=== PATIENT | female | born 1990 | race Caucasian/White ===

== ENCOUNTER → 2019-08-21 14:55 | Outpatient (CLI) | payer OTHER, SELFPAY ==
--- NOTE | 2019-08-21 15:00 | DI.MRI.S_ITS ---
PROCEDURE: MR ANKLE RT WO CON INDICATIONS: PAIN IN UNSPECIFIED ANKLE AND JOINTS TECHNIQUE: Noncontrast sagittal T1 spin echo and T2 fast spin echo with fat saturation, axial proton density fast spin echo and T2 fast spin echo with fat saturation, coronal T1 spin echo and T2 fast spin echo with fat saturation through the ankle/hindfoot. COMPARISON: None. FINDINGS: Image quality: Excellent. Bones and joints: No bone marrow contusions or fractures. No hindfoot coalitions. No osteochondral injuries of the talar dome. No pathologic joint effusions. Medial structures: The posterior tibialis, flexor digitorum longus, and flexor hallucis longus tendons are intact. However, there is low signal thickening of the distal of the posterior tibialis tendon in addition to incidentally noted unfused accessory navicular. Posterior tibialis flexor digitorum longus tenosynovitis. The posterior tibial neurovascular bundle appears normal within the tarsal tunnel, without extrinsic mass effect. The deep layer (anterior and posterior tibiotalar ligaments) and superficial layer (tibionavicular, tibiospring, and tibiocalcaneal ligaments) of the deltoid ligament appear normal. The spring ligament components (superomedial calcaneonavicular, medioplantar oblique calcaneonavicular, and inferoplantar longitudinal ligaments) are intact. Lateral structures: The anterior talofibular, calcaneofibular, and posterior talofibular ligaments appear intact. More superiorly, the anterior and posterior tibiofibular ligaments appear intact, as is the intermalleolar ligament. The tibiofibular syndesmosis is normal in width at 2 mm or less. The peroneus longus and brevis tendons demonstrate normal location and morphology. Adjacent bony peroneal tubercle and retrotrochlear prominence are normal in size. The sinus tarsi demonstrates normal fatty signal, without edema, fibrosis, or cyst formation. Visualized sinus tarsi components (cervical ligament, interosseous talocalcaneal ligament, roots of the inferior extensor retinaculum) appear normal. The calcaneonavicular and calcaneocuboid components of the bifurcate ligament appear intact. The dorsal calcaneocuboid ligament appears intact. Anterior structures: The tibialis anterior, extensor hallucis longus, and extensor digitorum longus tendons appear intact. The dorsal talonavicular ligament appears intact. Posterior and plantar structures: Achilles tendon is intact. Medial and lateral bands of the plantar fascia are of normal thickness. No abductor digiti quinti muscle atrophy to suggest [place] neuropathy. IMPRESSION: Mild distal posterior tibialis tendinopathy and thickening, with incidentally noted unfused accessory navicular. Consider weight bearing foot radiographs to assess integrity of the medial longitudinal arch. Posterior tibialis and flexor digitorum longus tenosynovitis. Dictated by: Henry Fung M.D. on 08/23/2019 at 8:33 Approved by: Henry Fung M.D. on 08/23/2019 at 8:40
== END ==
PROVIDERS: Visit Provider Family Medicine
DX: M25.571 Pain in right ankle and joints of right foot (principal); M65.871 Other synovitis and tenosynovitis, right ankle and foot
CPT/HCPCS: 73721

== ENCOUNTER 2022-01-17 11:13 | Emergency (ER) | payer OTHER, SELFPAY ==
[2022-01-17 11:21] VITALS: BP 114/76; PULSE 88; RESP 18; TEMP 36.7; O2SAT 98
--- NOTE | 2022-01-17 12:10 | ED.NECK ---
HPI - Neck Pain/Injury <CARLI Tracey - Last Filed: 01/17/22 14:38> General Chief Complaint: Neck Pain/Injury Stated Complaint: Swollen lymphnode/infection. Referred by Anabella Dr Time Seen by Provider: 01/17/22 12:09 Mode of arrival: Ambulatory History of Present Illness HPI Narrative: 31-year-old female presents to the emergency department following a primary care appointment with her PCP about her swollen right cervical lymph node which started swelling 5 days ago. She states it is tender, large she has had a fever, muscle aches, ear pressure on bilateral sides, nausea without emesis, and poor p.o. intake due to the pain of her neck muscles when she is chewing. 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 She denies any known recent illness, states that she has 2 children but neither of them have been sick. Patient denies any recent dental work, states she had a dental cleaning 1 month ago. Endorses that she had a lot of dental work completed 1 year ago. Patient states she had COVID in November and think she may have lingering symptoms still. Patient is unvaccinated for COVID. Patient complains of fatigue, muscle aches, and right cervical adenopathy approximately 8 cm and round, tender to palpation without any skin changes. Related Data Previous Rx's Medication Instructions Recorded methocarbamol 500 mg tablet 500 mg PO TID PRN #20 tab 01/17/22 naproxen 500 mg tablet (Naprosyn) 500 mg PO BID PRN #20 tab 01/17/22 ondansetron 4 mg disintegrating 4 mg PO BEDTIME PRN #7 tab 01/17/22 tablet Allergies Allergy/AdvReac Type Severity Reaction Status Date / Time No Known Drug Allergies Allergy Verified 01/17/22 11:28 Review of Systems <CARLI Tracey - Last Filed: 01/17/22 14:38> Review of Systems Narrative: General: Endorses fever and fatigue denies chills, malaise, sweats Head/Neck: Endorses mild headache, headache, neck pain, dizziness Eyes: denies visual changes, eye pain Cardio: denies chest pain, palpitations, edema Respiratory: denies dyspnea, cough, orthopnea GI: denies abdominal pain, nausea, vomiting, or diarrhea : denies dysuria, hematuria, urinary retention, frequency or incontinence MSK: denies joint pain, muscle weakness Skin: denies rash, itching, skin lesions or other Neuro: denies numbness, tingling Patient History <CARLI Tracey - Last Filed: 01/17/22 14:38> Social History Smoking Status: Never smoker Smoking Status: Never smoker Substance Use Type: marijuana Exam <CARLI Tracey - Last Filed: 01/17/22 14:38> Narrative Exam Narrative: Independently reviewed vitals signs and nursing notes. General: Cooperative, comfortable, in no acute distress, well developed and well groomed Head/Neck: Right anterior cervical lymphadenopathy, tender to palpation, approximately 7 by 8 cm, non mobile no discoloration or skin changes, nonfluctuant nontender over bilateral mastoids Normal facial exam, Ears: Canals are patent bilaterally, TMs bilaterally are pearly rowe with bilateral middle ear effusions Eyes: Pupils equal round and reactive, EOMI, conjunctiva normal, no scleral icterus or injections Nose: External nose normal, nares patent, no rhinorrhea, without purulent drainage Mouth/Throat: uvula midline, moist mucus membranes Cardio: Regular rate and rhythm, no peripheral edema, warm extremities Respiratory: Normal respiratory effort, able to speak in complete sentences without audible wheezing, stridor, or rales. No retractions. GI: Abdomen soft, nontender to palpation x4 quadrants, nondistended, no masses or exquisite tenderness with exam, no flank tenderness MSK: Moves all extremities, neurovascularly intact Skin: Normal capillary refill, no rash Neuro: Normal speech and cognition, normal gait, A&O x3, tone normal, moves all extremities Psych: Mental status is grossly normal, speech is clear, congruent mood, normal affect Initial Vital Signs Initial Vital Signs: Vital Signs Temperature 98.0 F 01/17/22 11:21 Pulse Rate 88 01/17/22 11:21 Respiratory Rate 18 01/17/22 11:21 Blood Pressure 114/76 01/17/22 11:21 Pulse Oximetry 98 01/17/22 11:21 <Ines Su DO - Last Filed: 01/22/22 07:29> Initial Vital Signs Initial Vital Signs: Vital Signs Temperature 98.0 F 01/17/22 11:21 Pulse Rate 88 01/17/22 11:21 Respiratory Rate 18 01/17/22 11:21 Blood Pressure 114/76 01/17/22 11:21 Pulse Oximetry 98 01/17/22 11:21 Course <CARLI Tracey - Last Filed: 01/17/22 14:38> Orders Ordered: Discontinued Medications Dexamethasone (Dexamethasone 10 Mg/Ml Vial) 8 mg IV NOW ONE Stop: 01/17/22 14:22 Last Admin: 01/17/22 14:37 Dose: 8 mg Documented by: ATAYLOR Sodium Chloride (Normal Saline 0.9%) 1,000 mls @ 1,000 mls/hr IV BOLUS ONE Stop: 01/17/22 13:23 Last Infusion: 01/17/22 14:47 Dose: 0 mls/hr Documented by: Admin: 01/17/22 13:01 Dose: 1,000 mls/hr Documented by: ATAYLOR Ketorolac Tromethamine (Ketorolac 30 Mg/Ml Vial) 15 mg IV NOW ONE Stop: 01/17/22 12:25 Last Admin: 01/17/22 13:01 Dose: 15 mg Documented by: ATAYLOR Methocarbamol (Methocarbamol 500 Mg Tablet) 500 mg PO NOW ONE Stop: 01/17/22 12:25 Last Admin: 01/17/22 13:01 Dose: 500 mg Documented by: ATAYLOR Ondansetron HCl (Ondansetron 4 Mg/2 Ml Inj) 4 mg IV NOW ONE Stop: 01/17/22 12:25 Last Admin: 01/17/22 13:02 Dose: 4 mg Documented by: HERBERTOR Vital Signs Vital signs: Vital Signs - 8 hr 01/17/22 11:21 Temperature 98.0 F Pulse Rate 88 Respiratory Rate 18 Blood Pressure 114/76 Pulse Oximetry 98 <Ines Su DO - Last Filed: 01/22/22 07:29> Orders Ordered: Discontinued Medications Dexamethasone (Dexamethasone 10 Mg/Ml Vial) 8 mg IV NOW ONE Stop: 01/17/22 14:22 Last Admin: 01/17/22 14:37 Dose: 8 mg Documented by: ATAYLOR Sodium Chloride (Normal Saline 0.9%) 1,000 mls @ 1,000 mls/hr IV BOLUS ONE Stop: 01/17/22 13:23 Last Infusion: 01/17/22 14:47 Dose: 0 mls/hr Documented by: Admin: 01/17/22 13:01 Dose: 1,000 mls/hr Documented by: AUNDREA Ketorolac Tromethamine (Ketorolac 30 Mg/Ml Vial) 15 mg IV NOW ONE Stop: 01/17/22 12:25 Last Admin: 01/17/22 13:01 Dose: 15 mg Documented by: AUNDREA Methocarbamol (Methocarbamol 500 Mg Tablet) 500 mg PO NOW ONE Stop: 01/17/22 12:25 Last Admin: 01/17/22 13:01 Dose: 500 mg Documented by: AUNDREA Ondansetron HCl (Ondansetron 4 Mg/2 Ml Inj) 4 mg IV NOW ONE Stop: 01/17/22 12:25 Last Admin: 01/17/22 13:02 Dose: 4 mg Documented by: AUNDREA Vital Signs Vital signs: Vital Signs - 8 hr 01/17/22 11:21 Temperature 98.0 F Pulse Rate 88 Respiratory Rate 18 Blood Pressure 114/76 Pulse Oximetry 98 MDM - Neck Pain/Injury <Lissette Post [facility] - Last Filed: 01/17/22 14:38> Lab Data Result diagrams: 01/17/22 12:24 01/17/22 12:24 Labs: Lab Results 01/17/22 01/17/22 01/17/22 Range/Units 12:24 12:24 12:24 WBC 8.4 (4.5-11.0) X10^3/uL RBC 4.31 (4.0-5.2) X10^6/uL Hgb 13.0 (12.0-16.0) g/dL Hct 37.8 (36-46) % MCV 87.6 (80-100) fL MCH 30.2 (26-34) PG MCHC 34.5 (30-36) % RDW 12.9 (11.6-14.8) % Plt Count 252 (150-400) X10^3/uL Neut % (Auto) 80.9 H (50-75) % Lymph % (Auto) 10.0 L (25-40) % [place] % (Auto) 7.6 (3-14) % Eos % (Auto) 1.0 L (2-4) % Baso % (Auto) 0.5 (0-2) % Neut # (Auto) 6800 (2697-8833) /uL Lymph # (Auto) 800 L (7959-9971) /uL [place] # (Auto) 600 (0-900) /uL Eos # (Auto) 100 (0-450) /uL Baso # (Auto) 0 (0-100) /uL Sodium 138 (137-145) mmol/L Potassium 4.1 (3.4-5.1) mmol/L Chloride 103 (98-107) mmol/L Carbon Dioxide 28 (22-32) mmol/L BUN 8 (7-17) mg/dL Creatinine 0.57 (0.52-1.04) mg/dL Estimated GFR > 60.0 (>60) mL/min BUN/Creatinine Ratio 14.0 (6-22) Glucose 94 (70-100) mg/dL Calcium 9.1 (8.4-10.2) mg/dL Total Bilirubin 0.5 (0.2-1.3) mg/dL AST 68 H (14-36) IU/L ALT 80 H (<35) IU/L Alkaline Phosphatase 74 (38-126) U/L Total Protein 7.9 (6.3-8.2) g/dL Albumin 4.3 (3.5-5.0) g/dL Globulin 3.6 (1.7-4.1) g/dL Albumin/Globulin Ratio 1.2 (1.0-2.8) Urine Color Urine Appearance Urine pH (4.5-8.0) Ur Specific [place] (1.000-1.035) Urine Protein (Negative) Urine Glucose (UA) (Negative) g/dL Urine Ketones (NEGATIVE) Urine Occult Blood (Negative) Urine Nitrate (Negative) Urine Bilirubin (NEGATIVE) Urine Urobilinogen (0.2) E.U./dL Ur Leukocyte Esterase (NEGATIVE) Urine RBC (0-5/HPF) Urine WBC (0-5/HPF) Urine Bacteria (None) Ur Culture Indicated? Micro UA Comment Chlamy pneumoniae PCR (Not Detect) Adenovirus (PCR) (Not Detect) B. pertussis DNA (PCR) (Not Detecte) B.parapertussis DNA PCR (Not Detecte) Coronavirus OC43 (PCR) (Not Detect) Coronavirus HKU1 (PCR) (Not Detect) Coronavirus 229E (PCR) (Not Detect) SARS-CoV-2 (PCR) (Not Detecte) Coronavirus NL63 (PCR) (Not Detect) Monoscreen Negative (Negative) Human Metapneumovir PCR (Not Detect) Influenza Type A (PCR) (Not Detect) Influenza Type B (PCR) (Not Detect) M. pneumoniae (PCR) (Not Detect) Parainfluenza 1 (PCR) (Not Detect) Parainfluenza 2 (PCR) (Not Detect) Parainfluenza 3 (PCR) (Not Detect) Parainfluenza 4 (PCR) (Not Detect) RSV (PCR) (Not Detect) Entero/Rhino (PCR) (Not Detect) 01/17/22 01/17/22 Range/Units 12:28 12:53 WBC (4.5-11.0) X10^3/uL RBC (4.0-5.2) X10^6/uL Hgb (12.0-16.0) g/dL Hct (36-46) % MCV (80-100) fL MCH (26-34) PG MCHC (30-36) % RDW (11.6-14.8) % Plt Count (150-400) X10^3/uL Neut % (Auto) (50-75) % Lymph % (Auto) (25-40) % [place] % (Auto) (3-14) % Eos % (Auto) (2-4) % Baso % (Auto) (0-2) % Neut # (Auto) (2006-5910) /uL Lymph # (Auto) (3560-2693) /uL [place] # (Auto) (0-900) /uL Eos # (Auto) (0-450) /uL Baso # (Auto) (0-100) /uL Sodium (137-145) mmol/L Potassium (3.4-5.1) mmol/L Chloride (98-107) mmol/L Carbon Dioxide (22-32) mmol/L BUN (7-17) mg/dL Creatinine (0.52-1.04) mg/dL Estimated GFR (>60) mL/min BUN/Creatinine Ratio (6-22) Glucose (70-100) mg/dL Calcium (8.4-10.2) mg/dL Total Bilirubin (0.2-1.3) mg/dL AST (14-36) IU/L ALT (<35) IU/L Alkaline Phosphatase (38-126) U/L Total Protein (6.3-8.2) g/dL Albumin (3.5-5.0) g/dL Globulin (1.7-4.1) g/dL Albumin/Globulin Ratio (1.0-2.8) Urine Color Yellow Urine Appearance Clear Urine pH 7.0 (4.5-8.0) Ur Specific [place] 1.010 (1.000-1.035) Urine Protein Trace H (Negative) Urine Glucose (UA) Trace H (Negative) g/dL Urine Ketones Negative (NEGATIVE) Urine Occult Blood Trace-lysed (Negative) Urine Nitrate Negative (Negative) Urine Bilirubin Negative (NEGATIVE) Urine Urobilinogen 1.0 (0.2) E.U./dL Ur Leukocyte Esterase Negative (NEGATIVE) Urine RBC None seen (0-5/HPF) Urine WBC None seen (0-5/HPF) Urine Bacteria None seen (None) Ur Culture Indicated? Cult not indicated Micro UA Comment Microscopic normal Chlamy pneumoniae PCR Not detected (Not Detect) Adenovirus (PCR) Not detected (Not Detect) B. pertussis DNA (PCR) Not detected (Not Detecte) B.parapertussis DNA PCR Not detected (Not Detecte) Coronavirus OC43 (PCR) Not detected (Not Detect) Coronavirus HKU1 (PCR) Not detected (Not Detect) Coronavirus 229E (PCR) Not detected (Not Detect) SARS-CoV-2 (PCR) Not detected (Not Detecte) Coronavirus NL63 (PCR) Not detected (Not Detect) Monoscreen (Negative) Human Metapneumovir PCR Not detected (Not Detect) Influenza Type A (PCR) Not detected (Not Detect) Influenza Type B (PCR) Not detected (Not Detect) M. pneumoniae (PCR) Not detected (Not Detect) Parainfluenza 1 (PCR) Not detected (Not Detect) Parainfluenza 2 (PCR) Not detected (Not Detect) Parainfluenza 3 (PCR) Not detected (Not Detect) Parainfluenza 4 (PCR) Not detected (Not Detect) RSV (PCR) Not detected (Not Detect) Entero/Rhino (PCR) Not detected (Not Detect) Point of Care Testing Test Results Negative Imaging Data US neck: Radiologist's Impression: PROCEDURE:? US SOFT TISSUE HEAD AND NECK ? INDICATIONS:? RIGHT CERVICAL ADENOPATHY VS ABSCESS ? TECHNIQUE:? Real-time scanning was performed of the neck region of interest, with image documentation.? ? COMPARISON:? None. ? FINDINGS:? ? Palpable abnormality corresponds with right submandibular adenopathy.? Largest node measures 2.1 x 1.4 x 2.0 cm.? Fatty hilum is preserved.? No evidence of soft tissue abscess ? IMPRESSION:? ? Right submandibular adenopathy.? No evidence of abscess. ? ? ? Approved by: Toribio Burton M.D. on 01/17/2022 at 13:25? MDM Narrative Medical decision making narrative: 31-year-old female presents to the emergency department with right anterior cervical adenopathy which has been present for 5 days. Patient states that she developed a low-grade fever about the time that she noticed her lymphadenopathy. She does not have any other swollen lymph nodes other than the ones on her right anterior neck, ultrasound soft tissue neck shows right submandibular adenopathy without evidence of abscess. Palpable abnormality corresponds with right-sided mandibular adenopathy with largest node measuring 2.1 x 1.4 x 2.0 cm. Lab work is fairly unremarkable, initially this appeared to be a viral URI with bilateral middle ear effusion, pharyngitis, muscle aches, fever but her respiratory panel was negative for all tested viruses including negative Monospot. Leukocytosis, WBC is 8.4, elevated neutrophils and low lymphocytes. Patient's AST and ALT are mildly elevated at 68 and 80 respectively, high UA shows a trace of protein and a trace of urine glucose no other findings. There are no acute surgical or emergent findings on her exam today, her vital signs are within normal limits, she is afebrile, without tachycardia, hypoxia, or systemic signs of infection. Patient was given methocarbamol, Toradol, 1 L of normal saline, Zofran in the emergency department with improvement in her symptoms and pain. She was discharged with a prescription of methocarbamol, Zofran and naproxen for pain and fever. This is most likely a viral syndrome although she tested negative for all tested viruses. Patient is appropriate and amenable to discharge home. Vital signs are stable on repeat examination is unremarkable. Patient has been informed of results. Patient has been given strict return to ER precautions for any new or worsening symptoms. Patient understands to follow up closely with outpatient providers as instructed. Patient understands plan and agrees to discharge home. All questions and concerns answered at this time. <Ines Su, DO - Last Filed: 01/22/22 07:29> Lab Data Labs: Lab Results 01/17/22 01/17/22 01/17/22 Range/Units 12:24 12:24 12:24 WBC 8.4 (4.5-11.0) X10^3/uL RBC 4.31 (4.0-5.2) X10^6/uL Hgb 13.0 (12.0-16.0) g/dL Hct 37.8 (36-46) % MCV 87.6 (80-100) fL MCH 30.2 (26-34) PG MCHC 34.5 (30-36) % RDW 12.9 (11.6-14.8) % Plt Count 252 (150-400) X10^3/uL Neut % (Auto) 80.9 H (50-75) % Lymph % (Auto) 10.0 L (25-40) % [place] % (Auto) 7.6 (3-14) % Eos % (Auto) 1.0 L (2-4) % Baso % (Auto) 0.5 (0-2) % Neut # (Auto) 6800 (6914-1994) /uL Lymph # (Auto) 800 L (4637-4613) /uL [place] # (Auto) 600 (0-900) /uL Eos # (Auto) 100 (0-450) /uL Baso # (Auto) 0 (0-100) /uL Sodium 138 (137-145) mmol/L Potassium 4.1 (3.4-5.1) mmol/L Chloride 103 (98-107) mmol/L Carbon Dioxide 28 (22-32) mmol/L BUN 8 (7-17) mg/dL Creatinine 0.57 (0.52-1.04) mg/dL Estimated GFR > 60.0 (>60) mL/min BUN/Creatinine Ratio 14.0 (6-22) Glucose 94 (70-100) mg/dL Calcium 9.1 (8.4-10.2) mg/dL Total Bilirubin 0.5 (0.2-1.3) mg/dL AST 68 H (14-36) IU/L ALT 80 H (<35) IU/L Alkaline Phosphatase 74 (38-126) U/L Total Protein 7.9 (6.3-8.2) g/dL Albumin 4.3 (3.5-5.0) g/dL Globulin 3.6 (1.7-4.1) g/dL Albumin/Globulin Ratio 1.2 (1.0-2.8) Urine Color Urine Appearance Urine pH (4.5-8.0) Ur Specific [place] (1.000-1.035) Urine Protein (Negative) Urine Glucose (UA) (Negative) g/dL Urine Ketones (NEGATIVE) Urine Occult Blood (Negative) Urine Nitrate (Negative) Urine Bilirubin (NEGATIVE) Urine Urobilinogen (0.2) E.U./dL Ur Leukocyte Esterase (NEGATIVE) Urine RBC (0-5/HPF) Urine WBC (0-5/HPF) Urine Bacteria (None) Ur Culture Indicated? Micro UA Comment Chlamy pneumoniae PCR (Not Detect) Adenovirus (PCR) (Not Detect) B. pertussis DNA (PCR) (Not Detecte) B.parapertussis DNA PCR (Not Detecte) Coronavirus OC43 (PCR) (Not Detect) Coronavirus HKU1 (PCR) (Not Detect) Coronavirus 229E (PCR) (Not Detect) SARS-CoV-2 (PCR) (Not Detecte) Coronavirus NL63 (PCR) (Not Detect) Monoscreen Negative (Negative) Human Metapneumovir PCR (Not Detect) Influenza Type A (PCR) (Not Detect) Influenza Type B (PCR) (Not Detect) M. pneumoniae (PCR) (Not Detect) Parainfluenza 1 (PCR) (Not Detect) Parainfluenza 2 (PCR) (Not Detect) Parainfluenza 3 (PCR) (Not Detect) Parainfluenza 4 (PCR) (Not Detect) RSV (PCR) (Not Detect) Entero/Rhino (PCR) (Not Detect) 01/17/22 01/17/22 Range/Units 12:28 12:53 WBC (4.5-11.0) X10^3/uL RBC (4.0-5.2) X10^6/uL Hgb (12.0-16.0) g/dL Hct (36-46) % MCV (80-100) fL MCH (26-34) PG MCHC (30-36) % RDW (11.6-14.8) % Plt Count (150-400) X10^3/uL Neut % (Auto) (50-75) % Lymph % (Auto) (25-40) % [place] % (Auto) (3-14) % Eos % (Auto) (2-4) % Baso % (Auto) (0-2) % Neut # (Auto) (1014-6970) /uL Lymph # (Auto) (4796-1085) /uL [place] # (Auto) (0-900) /uL Eos # (Auto) (0-450) /uL Baso # (Auto) (0-100) /uL Sodium (137-145) mmol/L Potassium (3.4-5.1) mmol/L Chloride (98-107) mmol/L Carbon Dioxide (22-32) mmol/L BUN (7-17) mg/dL Creatinine (0.52-1.04) mg/dL Estimated GFR (>60) mL/min BUN/Creatinine Ratio (6-22) Glucose (70-100) mg/dL Calcium (8.4-10.2) mg/dL Total Bilirubin (0.2-1.3) mg/dL AST (14-36) IU/L ALT (<35) IU/L Alkaline Phosphatase (38-126) U/L Total Protein (6.3-8.2) g/dL Albumin (3.5-5.0) g/dL Globulin (1.7-4.1) g/dL Albumin/Globulin Ratio (1.0-2.8) Urine Color Yellow Urine Appearance Clear Urine pH 7.0 (4.5-8.0) Ur Specific [place] 1.010 (1.000-1.035) Urine Protein Trace H (Negative) Urine Glucose (UA) Trace H (Negative) g/dL Urine Ketones Negative (NEGATIVE) Urine Occult Blood Trace-lysed (Negative) Urine Nitrate Negative (Negative) Urine Bilirubin Negative (NEGATIVE) Urine Urobilinogen 1.0 (0.2) E.U./dL Ur Leukocyte Esterase Negative (NEGATIVE) Urine RBC None seen (0-5/HPF) Urine WBC None seen (0-5/HPF) Urine Bacteria None seen (None) Ur Culture Indicated? Cult not indicated Micro UA Comment Microscopic normal Chlamy pneumoniae PCR Not detected (Not Detect) Adenovirus (PCR) Not detected (Not Detect) B. pertussis DNA (PCR) Not detected (Not Detecte) B.parapertussis DNA PCR Not detected (Not Detecte) Coronavirus OC43 (PCR) Not detected (Not Detect) Coronavirus HKU1 (PCR) Not detected (Not Detect) Coronavirus 229E (PCR) Not detected (Not Detect) SARS-CoV-2 (PCR) Not detected (Not Detecte) Coronavirus NL63 (PCR) Not detected (Not Detect) Monoscreen (Negative) Human Metapneumovir PCR Not detected (Not Detect) Influenza Type A (PCR) Not detected (Not Detect) Influenza Type B (PCR) Not detected (Not Detect) M. pneumoniae (PCR) Not detected (Not Detect) Parainfluenza 1 (PCR) Not detected (Not Detect) Parainfluenza 2 (PCR) Not detected (Not Detect) Parainfluenza 3 (PCR) Not detected (Not Detect) Parainfluenza 4 (PCR) Not detected (Not Detect) RSV (PCR) Not detected (Not Detect) Entero/Rhino (PCR) Not detected (Not Detect) Point of Care Testing Test Results Negative Discharge Plan Departure Patient Disposition: Home Clinical Impression: Anterior cervical adenopathy, Myalgia Fever Qualifiers: Fever type: unspecified Qualified Code(s): R50.9 - Fever, unspecified Activity Restrictions/Additional Instructions: *You have been diagnosed with right submandibular lymph node measuring 2.1 x 1.4 x 2 cm. Please continue to stay hydrated, take ibuprofen or Tylenol as needed for fever, eat soft foods, use muscle relaxers as necessary for your muscle aches. This is most likely a viral illness that did not show up on our respiratory panel. There is no evidence of abscess on your ultrasound, this is only a swollen lymph node, no evidence of any infection surrounding. No antibiotics are indicated at this time. Please follow-up with your primary care provider for a follow-up exam to ensure that this is going down. Please rest, focus on hydration, and I hope you feel better soon. *What to do: *Please continue to take your regular medications as directed. [x ] New medication prescriptions sent to your pharmacy: [ ] [ ] New medication written as a paper prescription [ ] No new medications given *Please follow up with your primary care provider in 2-3 days, call for an appointment. Let them know you were seen in the Emergency Department and that we ask that you be seen in follow up. We will electronically transmit a record of today's note if your PCP is in our system *If you do not have a primary care provider please contact the [facility] Resource line at [phone]. They will ask some questions about your medical history and help get you set up with a doctor in the community. *Return to Emergency Department if you should have any new, worsening or concerning symptoms, such as [fever greater than 101F, chills, worsening pain, persistent vomiting or other bothersome symptoms] Prescriptions: New methocarbamol 500 mg tablet 500 mg PO TID PRN (Reason: muscle aches) Qty: 20 0RF naproxen [Naprosyn] 500 mg tablet 500 mg PO BID PRN (Reason: pain) Qty: 20 0RF ondansetron 4 mg tablet,disintegrating 4 mg PO BEDTIME PRN (Reason: nausea and vomiting) Qty: 7 0RF Referrals: [facility] [Provider Group] <Ines Su DO - Last Filed: 01/22/22 07:29> [facility] Attending Anneliese Attestation: I was immediately available in the department for consultation. Documentation has been reviewed. I agree with assessment and plan.
[2022-01-17] MEDS: SODIUM CHLORIDE 0.9% 1,000 ML 1000 ML IV (13:01)
[2022-01-17] MEDS: KETOROLAC 30 MG/ML VIAL 15 MG IV (13:01)
[2022-01-17] MEDS: methocarbamoL 500 MG TABLET PO (13:01)
[2022-01-17] MEDS: ONDANSETRON 4 MG/2 ML INJ IV (13:02)
--- NOTE | 2022-01-17 13:16 | DI.US.S_ITS ---
PROCEDURE: US SOFT TISSUE HEAD AND NECK INDICATIONS: RIGHT CERVICAL ADENOPATHY VS ABSCESS TECHNIQUE: Real-time scanning was performed of the neck region of interest, with image documentation. COMPARISON: None. FINDINGS: Palpable abnormality corresponds with right submandibular adenopathy. Largest node measures 2.1 x 1.4 x 2.0 cm. Fatty hilum is preserved. No evidence of soft tissue abscess IMPRESSION: Right submandibular adenopathy. No evidence of abscess. Approved by: Toribio Burton M.D. on 01/17/2022 at 13:25
[2022-01-17 13:22] LABS: Appearance Urine UA CLEAR; Bilirubin Urine UA NEGATIVE (NEGATIVE); Color Urine UA YELLOW; Glucose Urine UA TRACE g/dL (Negative); Ketones Urine UA NEGATIVE (NEGATIVE); Leukocyte Esterase Urine UA NEGATIVE (NEGATIVE); Nitrite Urine UA NEGATIVE (Negative); Occult Blood Urine UA TRACE-LYSED (Negative); Protein Urine UA TRACE (Negative)
[2022-01-17 13:26] LABS: Bacteria Urine None Seen; Culture Indicated Urine Cult Not Indicated; RBC Urine None Seen (0-5/HPF); Urine Comments Microscopic Normal; WBC Urine None Seen (0-5/HPF)
[2022-01-17 13:38] LABS: Add Manual Diff / Slide Review NO; Basophils Absolute Auto 0 /uL (0-100); Basophils Percent Auto 0.5 % (0-2); Eosinophils Absolute Auto 100 /uL (0-450); Hematocrit 37.8 % (36-46); Lymphocytes Absolute Auto 800 /uL (1100-4500); Mean Corpuscular HGB Conc 34.5 % (30-36); Mean Corpuscular Hemoglobin 30.2 PG (26-34); Mean Corpuscular Volume 87.6 fL (80-100); Monocytes Absolute Auto 600 /uL (0-900); Monocytes Percent Auto 7.6 % (3-14); Neutrophils Absolute Auto 6800 /uL (1500-7000); Neutrophils Percent Auto 80.9 % (50-75); Platelet Count 252 X10^3/uL (150-400); Red Blood Cell Count 4.31 X10^6/uL (4.0-5.2); Red Cell Distribution Width 12.9 % (11.6-14.8); White Blood Cell Count 8.4 X10^3/uL (4.5-11.0)
[2022-01-17 13:43] LABS: Monotest Negative (Negative)
[2022-01-17 13:45] LABS: Alanine Aminotransferase 80 IU/L (<35); Albumin 4.3 g/dL (3.5-5.0); Albumin Globulin Ratio 1.2 (1.0-2.8); Alkaline Phosphatase 74 U/L (38-126); Aspartate Aminotransferase 68 IU/L (14-36); Bilirubin Total 0.5 mg/dL (0.2-1.3); Blood Urea Nitrogen 8 mg/dL (7-17); Calcium 9.1 mg/dL (8.4-10.2); Carbon Dioxide 28 mmol/L (22-32); Chloride 103 mmol/L (98-107); Estimated Glomerular Filt Rate > 60.0 mL/min (>60); Globulin 3.6 g/dL (1.7-4.1); Glucose 94 mg/dL (70-100); HEMOLYSIS < 15 (0-50); Potassium 4.1 mmol/L (3.4-5.1); Sodium 138 mmol/L (137-145); Total Protein 7.9 g/dL (6.3-8.2)
[2022-01-17 14:07] LABS: Adenovirus Not Detected (Not Detect); B. parapertussis Not Detected (Not Detecte); Bordetella pertussis Not Detected (Not Detecte); Chlamydophila pneumoniae Not Detected (Not Detect); Coronavirus 229E Not Detected (Not Detect); Coronavirus HKU1 Not Detected (Not Detect); Coronavirus NL 63 Not Detected (Not Detect); Coronavirus OC43 Not Detected (Not Detect); Human Metapneumovirus Not Detected (Not Detect); Human Rhinovirus/Enterovirus Not Detected (Not Detect); Influenza A Not Detected (Not Detect); Influenza B Not Detected (Not Detect); Mycoplasma pneumoniae Not Detected (Not Detect); Parainfluenza Virus 1 Not Detected (Not Detect); Parainfluenza Virus 2 Not Detected (Not Detect); Parainfluenza Virus 3 Not Detected (Not Detect); Parainfluenza Virus 4 Not Detected (Not Detect); Respiratory Syncytial Virus Not Detected (Not Detect); SARS- CoV-2 Not Detected (Not Detecte)
[2022-01-17] MEDS: DEXAMETHASONE 10 MG/ML VIAL 8 MG IV (14:37)
[2022-01-17 15:06] VITALS: BP 108/67; PULSE 80; RESP 15; O2SAT 99
== END 2022-01-17 15:08 | disposition home or self-care (01) ==
PROVIDERS: Emergency Provider Nurse Practitioner Critical Care Medicine
DX: R59.0 Localized enlarged lymph nodes (principal); M79.10 Myalgia, unspecified site
CPT/HCPCS: 36415; 76536; 80053; 81001; 81025; 85025; 86318; 87633; 96361; 96374; 96375; 99284; J1100; J1885; J2405